=== PATIENT | male | born 1955 | race Caucasian/White ===

== ENCOUNTER → 2018-04-02 08:19 | Outpatient (CLI) | payer OTHER, SELFPAY ==
[2018-04-02 10:30] LABS: Anion Gap 10 (5-15); BUN 23 mg/dL (7-18); BUN/Creat Ratio 22.1 RATIO (10-20); Calcium,Total 8.8 mg/dL (8.5-10.1); Chloride 108 mmol/L (98-107); Cholesterol 175 mg/dL (200); Creatinine, Serum 1.04 mg/dL (0.70-1.30); EST Glomerular Filtration Rate 76 mL/min (>60); Est Glom Filt Rate - Afr Amer 92 mL/min (>60); Glucose 88 mg/dL (74-106); High Density Lipoprotein 42 mg/dL; Potassium 4.2 mmol/L (3.5-5.1); Sodium Level 143 mmol/L (136-145); Triglycerides 131 mg/dL; Very Low Density Lipoprotein 26 mg/dL (5-40)
== END ==
PROVIDERS: Family Provider Family Medicine; PCP Family Medicine; Visit Provider Family Medicine
DX: I10 Essential (primary) hypertension (principal)
CPT/HCPCS: 36415; 80048; 80061

== ENCOUNTER → 2018-04-14 14:02 | Outpatient (CLI) | payer OTHER, SELFPAY ==
--- NOTE | 2018-04-14 14:10 | RAD_ITS ---
STUDY: X-RAY CHEST REASON FOR EXAM: Male, 62 years old. Persistent cough. TECHNIQUE: PA and lateral views of the chest. COMPARISON: None. FINDINGS: Mild elevation of the left hemidiaphragm. Mild increased interstitial markings at the lung bases slightly worse on the left side. This may represent either scarring and/or linear atelectasis. Follow-up is recommended. There is no demonstrated pleural abnormality. Normal size heart. Normal mediastinum and ashlie. Normal visualized pulmonary arteries. Normal visualized aortic arch and descending thoracic aorta. There are diffuse degenerative changes of the visualized thoracic spine. Normal visualized ribs, clavicles, and shoulders. There is no demonstrated abnormality of the visualized soft tissue structures of the upper abdomen. RAD/Chest PA and Lateral IMPRESSION: Increasing markings at the lung bases slightly worse on the left side as described. This may represent either linear scarring or atelectasis. Follow-up is recommended. Electronically Signed: Leroy Page MD at 14:53 EST Tel [phone], Service support ,
== END ==
PROVIDERS: Family Provider Family Medicine; PCP Family Medicine; Referring Provider Family Medicine; Visit Provider Family Medicine
DX: R05 Cough (principal)
CPT/HCPCS: 71046

== ENCOUNTER → 2019-04-20 08:30 | Outpatient (CLI) | payer OTHER, SELFPAY ==
[2018-11-02 11:07] VITALS: BMI 26.8
[2019-04-20 10:40] LABS: Anion Gap 4 (5-15); BUN 17 mg/dL (7-18); BUN/Creat Ratio 15.5 RATIO (10-20); Calcium,Total 8.5 mg/dL (8.5-10.1); Chloride 105 mmol/L (98-107); Cholesterol 157 mg/dL (200); EST Glomerular Filtration Rate 71 mL/min (>60); Est Glom Filt Rate - Afr Amer 86 mL/min (>60); Glucose 85 mg/dL (74-106); High Density Lipoprotein 47 mg/dL; Potassium 4.4 mmol/L (3.5-5.1); Sodium Level 136 mmol/L (136-145); Triglycerides 95 mg/dL; Very Low Density Lipoprotein 19 mg/dL (5-40)
== END ==
PROVIDERS: Family Provider Family Medicine; PCP Family Medicine; Visit Provider Family Medicine
DX: I10 Essential (primary) hypertension (principal); E78.5 Hyperlipidemia, unspecified
CPT/HCPCS: 36415; 80048; 80061

== ENCOUNTER → 2020-10-27 08:26 | Outpatient (CLI) | payer OTHER, SELFPAY ==
[2018-11-02 11:07] VITALS: BMI 26.8
[2020-10-27 11:16] LABS: Anion Gap 9 (5-15); BUN 20 mg/dL (7-18); Calcium,Total 9.1 mg/dL (8.5-10.1); Chloride 102 mmol/L (98-107); Creatinine, Serum 1.05 mg/dL (0.70-1.30); EST Glomerular Filtration Rate 75 mL/min (>60); Est Glom Filt Rate - Afr Amer 91 mL/min (>60); Glucose 87 mg/dL (74-106); Potassium 4.3 mmol/L (3.5-5.1); Sodium Level 136 mmol/L (136-145)
== END ==
PROVIDERS: PCP Family Medicine; Referring Provider Family Medicine; Visit Provider Family Medicine
DX: I10 Essential (primary) hypertension (principal)
CPT/HCPCS: 36415; 80048

== ENCOUNTER → 2022-03-01 | Outpatient (CLI) | payer OTHER, SELFPAY ==
[2022-03-01 10:40] LABS: Anion Gap 6 (5-15); BUN 24 mg/dL (7-18); BUN/Creat Ratio 24.6 RATIO (10-20); Calcium,Total 9.7 mg/dL (8.5-10.1); Chloride 105 mmol/L (98-107); Creatinine, Serum 0.97 mg/dL (0.70-1.30); EST Glomerular Filtration Rate 81 mL/min (>60); Est Glom Filt Rate - Afr Amer 98 mL/min (>60); Glucose 94 mg/dL (74-106); PSA,Total - Annual Screen 1.19 ng/mL (0.00-4.00); Potassium 4.2 mmol/L (3.5-5.1); Sodium Level 136 mmol/L (136-145)
== END | disposition home or self-care (01) ==
LOC: MFPLAB 09:02
PROVIDERS: PCP Family Medicine; Referring Provider Family Medicine; Visit Provider Family Medicine
DX: E78.5 Hyperlipidemia, unspecified (principal); Z12.5 Encounter for screening for malignant neoplasm of prostate
CPT/HCPCS: 36415; 80048; 84153; G0103

== ENCOUNTER → 2022-08-22 | Outpatient (CLI) | payer OTHER, SELFPAY ==
--- NOTE | 2022-08-22 13:30 | TOBX_PTH ---
PATIENT: MITA CHOPRA LOC: [facility] U#:[id number] AGE/SX: 66/M ROOM: RE08/22/[address]: Dr. Jorje Black DDS : 1955 BED: DIS: 08/22/2022 SPEC #: [id number] RECD: 08/22/22 14:55 STATUS: JULIUS REDamián #: [id number] SUKHJINDER: 08/22/22 13:[address]: Jorje Black DEPT: SURGICAL PATHOLOGY RECD BY: Jana Bermudez ENTERED: 08/23/22 09:44 SP TYPE: TONGUE BX OTHR DR: Dr. 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 Mild lichenoid inflammation. See comment. AM:agata 08/24/2022 COMMENT The findings may be consistent with lichen planus. Clinical correlation is suggested. MICROSCOPIC DESCRIPTION Slides are reviewed. GROSS DESCRIPTION Received in fixative is one container labeled with the patient's name and designated tongue. The specimen consists of a piece of paz mucosal tissue measuring 0.6 x 0.3 cm and up to 0.3 cm in thickness. The specimen is inked, bisected and submitted entirely in one cassette. / SJ:agata 08/23/2022 TC:3 CPT: 64674
== END | disposition home or self-care (01) ==
LOC: LABSPEC 15:07
PROVIDERS: PCP Family Medicine; Referring Provider Dentist Oral and Maxillofacial Surgery; Visit Provider Dentist Oral and Maxillofacial Surgery
DX: R23.4 Changes in skin texture (principal)
CPT/HCPCS: 88305

== ENCOUNTER 2023-02-16 07:34 | Emergency (ER) | payer OTHER, SELFPAY ==
[2023-02-16 07:35] VITALS: BP 140/90; PULSE 77; RESP 16; TEMP 37; O2SAT 99; BMI 28.0
--- NOTE | 2023-02-16 07:47 | CT_ITS ---
EXAM: CT ABDOMEN AND PELVIS WITHOUT INTRAVENOUS CONTRAST CLINICAL INDICATION: constipation, vomiting TECHNIQUE: Helically acquired images were obtained of the abdomen and pelvis without intravenous contrast. This CT exam was performed using one or more of the following dose reduction techniques: automated exposure control, adjustment of the mA and/or kV according to patient size, and/or use of iterative reconstruction technique. COMPARISON: No relevant prior studies available. FINDINGS: LOWER THORAX: Interstitial thickening involves the lung bases which may represent acute or chronic interstitial lung disease. ABDOMEN: LIVER: 12 mm hypodensity within hepatic segment 8 suggestive of a cyst. PANCREAS: Normal. No focal cystic mass. SPLEEN: Normal. Normal size without focal cystic or solid mass. ADRENALS: Normal. No nodules. KIDNEYS AND URETERS: 4 mm proximal right ureteral stone noted at the L2-3 level associated with right hydronephrosis. No intrarenal stone. Left kidney and collecting system are normal. STOMACH AND BOWEL: Diverticulosis of the colon noted without evidence of acute diverticulitis. PELVIS: APPENDIX: Appendix is visualized and normal in appearance. BLADDER: Normal. REPRODUCTIVE: Prostate gland is mildly enlarged. ABDOMEN and PELVIS: INTRAPERITONEAL SPACE: Normal. No ascites or other fluid collection. No free air. BONES/JOINTS: No suspicious lytic or blastic abnormality. SOFT TISSUES: Small fat-containing left inguinal hernia. VASCULATURE: Normal. Abdominal aorta is non-dilated. LYMPH NODES: Normal. No enlarged lymph nodes. CT/Abdomen/Pelvis without Cont IMPRESSION: 1. Obstructive 4 mm proximal right ureteral stone. 2. Diverticulosis coli. 3. Small fat-containing left inguinal hernia. Electronically Signed: Catrachito Carmen MD at 8:40 EDT ,
--- NOTE | 2023-02-16 07:48 | EX.ED.DYSGE1 ---
HPI History of Present Illness Chief Complaint: Nausea/Vomiting Informant: patient Onset/Context/Timing Onset: Days (3 days) Narrative Narrative: Patient presents secondary to constipation with nausea and vomiting. He states he had a small bowel movement on Saturday, but none since. He took Senokot last night had a small amount of gas this morning. He has had nausea and vomiting and feels that that is the only way for his body to get rid of least at this time. He denies any prior abdominal surgeries. Last colonoscopy was 4 years ago. He has had some polyps removed during his last 2 scopes. He has a family history of colon cancer. He is scheduled for another colonoscopy next week with Dr. Platt. [facility] Medical History Hemorrhoids Hypercholesteremia Hypertension Home Medications aspirin 81 mg tablet,delayed release 81 mg PO DAILY 11/02/18 [History Last Taken Unknown] hydrocodone-acetaminophen 5-325mg 5mg-325mg 1 tab PO Q6H PRN PRN Pain 3 days #10 TABLETS 02/16/23 [Rx Last Taken Unknown] ibuprofen 400 mg tablet 400 mg PO Q8H PRN pain #14 tabs 02/16/23 [Rx Last Taken Unknown] lansoprazole 15 mg capsule,delayed release 15 mg PO DAILY 02/16/23 [History Last Taken Unknown] lisinopril 5 mg tablet 5 mg PO DAILY 02/16/23 [History Last Taken Unknown] ondansetron 4 mg disintegrating tablet 4 mg PO Q8H PRN PRN Nausea #10 tabs 02/16/23 [Rx Last Taken Unknown] simvastatin 20 mg tablet 20 mg PO DAILY 02/16/23 [History Last Taken Unknown] Allergy/AdvReac Type Severity Reaction Status Date / Time No Known Allergies Allergy Verified 02/16/23 07:35 Social History Smoking Status: Never smoker alcohol intake: never ROS ROS ED Constitutional Constitutional ED: Denies chills or fever(s) Eyes Eyes: Denies discharge from eye(s) ENT ENT ED: Denies discharge from eye(s), rhinorrhea or sore throat Cardiovascular Cardiovascular: Denies chest pain Respiratory/Chest Respiratory/Chest: Denies cough or dyspnea Gastrointestinal Gastrointestinal: Reports abdominal pain, constipation, nausea and vomiting; Denies diarrhea Genitourinary Genitourinary ED: Denies dysuria Musculoskeletal Musculoskeletal: Denies back pain or extremity pain Integumentary Denies Abrasions or rash Neurologic Neurologic: Denies headache(s) or weakness Psychiatric Psychiatric: Denies anxiety or depression Allergic/Immunologic Allergic/Immunologic ED: Denies lip swelling or urticaria EXAM Physical Exam Const Vital Signs: 02/16/23 07:35 Temperature 98.6 F Temperature Source Oral Pulse Rate 77 Respiratory Rate 16 Blood Pressure 140/90 H Blood Pressure Mean 106 Pulse Ox 99 Oxygen Delivery Method Room Air Positive well nourished and well developed General Appearance ED: well developed HEENT Reports moist mucous membranes Eyes EOMs intact bilaterally Chest Wall inspection of chest normal and palpation of chest normal Resp normal respiratory effort and clear to auscultation bilaterally Cardio regular rate and regular rhythm GI GI Narrative: Abdomen is soft and nontender palpation. No bowel sounds are heard on auscultation. Extremity normal to inspection Neuro oriented x3 and no sensory deficits noted Motor Exam: strength 5/5 throughout Psych mental status grossly normal Skin no rashes or lesions noted MDM MDM MDM Narrative Medical decision making narrative: IV line established. Labwork obtained to evaluate for leukocytosis, anemia, and electrolyte derangement. CT scan of the abdomen and pelvis obtained to evaluate for possible bowel obstruction. History & Record Review Discussion w/independent historian: Patient and Significant other Additional record(s) reviewed:: Prior labs Lab Data Attestation: I reviewed the patient's lab results. Labs: Laboratory Results - last 24 hr 02/16/23 02/16/23 07:45 08:41 WBC 14.5 H RBC 5.60 Hgb 17.6 H Hct 53.9 MCV 96.3 H MCH 31.4 MCHC 32.7 RDW Std Deviation 46.8 H RDW Coeff of [place] 13.0 Plt Count 242 MPV 9.9 Immature Gran % (Auto) 0.500 Neut % (Auto) 82.6 H Lymph % (Auto) 10.3 L [place] % (Auto) 6.3 Eos % (Auto) 0.1 Baso % (Auto) 0.2 Absolute Neuts (auto) 12.0 H Absolute Lymphs (auto) 1.50 Nucleated RBC % 0 Sodium 138 Potassium 4.4 Chloride 102 Carbon Dioxide 25.0 Anion Gap 11 BUN 28 H Creatinine 1.31 H Estim Creat Clear Calc 54.95 Est GFR (MDRD) Af Amer 70 Est GFR (MDRD) Non-Af 58 L BUN/Creatinine Ratio 21.4 H Glucose 98 Calcium 9.5 Total Bilirubin 1.00 Direct Bilirubin 0.18 AST 51 H ALT 35 Alkaline Phosphatase 75 Total Protein 7.9 Albumin 3.9 Globulin 4.0 Urine Color Yellow Urine Clarity Clear Urine pH 5.0 Ur Specific [place] 1.025 Urine Protein 15 H Urine Glucose (UA) Normal Urine Ketones 50 H Urine Occult Blood 50 H Urine Nitrite Negative Urine Bilirubin Negative Urine Urobilinogen Normal Ur Leukocyte Esterase 25 H Urine RBC 5-10 SEEN Urine WBC 0-5 SEEN Ur Squamous Epith Cells 0 SEEN Urine Bacteria 0 SEEN Urine Mucus 2+ Radiography Diagnostic Testing: Clinical Impression(s) from Imaging Studies Abdomen/Pelvis CT 02/16/23 07:47 IMPRESSION: 1. Obstructive 4 mm proximal right ureteral stone. 2. Diverticulosis coli. 3. Small fat-containing left inguinal hernia. Electronically Signed: Catrachito Carmen MD at 8:40 EDT , Treatment and Re-Evaluation :: White count elevated at 14.5 with 82% neutrophils. Hemoglobin concentrated at 17.6. Chemistry studies reveal a BUN of 28 and a creatinine 1.31. This is increased from a creatinine of 0.97 a year ago. Urinalysis reveals no bacteria. He has 5-[address] scan of the flank reveals a 4 mm proximal right ureteral stone. Diverticulosis is noted without evidence of diverticulitis. Test results discussed with patient and at bedside. At this time patient does not have evidence of constipation. He did agree to a small dose of Toradol and Zofran. He will be discharged with prescriptions for Zofran, [place], and ibuprofen. He is instructed to increase p.o. fluids. Return instructions were provided. He will be referred to Dr. Ortiz for follow-up. Discharge Plan Triage Chief Complaint: Nausea/Vomiting ED Provider: Erica Crowell Dx/Rx/DC Orders Clinical Impression: Ureterolithiasis Instructions: ED Kidney Stone w/ Colic Prescriptions: New ondansetron 4 mg tablet,disintegrating 4 mg PO Q8H PRN PRN (Reason: Nausea) Qty: 10 0RF ibuprofen 400 mg tablet 400 mg PO Q8H PRN (Reason: pain) Qty: 14 0RF hydrocodone-acetaminophen 5-325 mg tablet 1 tab PO Q6H PRN PRN (Reason: Pain) 3 Days Qty: 10 0RF No Action aspirin 81 mg tablet,delayed release (DR/EC) 81 mg PO DAILY lansoprazole 15 mg capsule,delayed release(DR/EC) 15 mg PO DAILY lisinopril 5 mg tablet 5 mg PO DAILY Patient Comments: TAKE 1 TABLET BY MOUTHCONCE DAILY simvastatin 20 mg tablet 20 mg PO DAILY Patient Comments: TAKE 1 TABLET BY MOUTH)ONCE DAILY Primary Care Provider: Bola Olivo Referrals: Elijah Ortiz MD [Med Staff - Active Staff] - 3-5 Days if not improving Bola Olivo MD [Primary Care Provider] - Disposition Disposition: Home, Self Care
[2023-02-16] MEDS: 0.9% Normal Saline (1000mL) 1,000 ML 150 ML IV (07:56)
[2023-02-16 08:00] LABS: Basophil# 0.03 X10^3/uL; Basophil% 0.2 % (0-1); Eosinophil# 0.01 X10^3/uL; Eosinophils% 0.1 % (0-5); Hematocrit 53.9 % (40-54); Hemoglobin 17.6 g/dL (13.0-16.5); Lymphocyte % 10.3 % (19-41); Mean Corp Hgb Conc 32.7 g/dL (32-36); Mean Corpuscular Hgb 31.4 pg (27.0-32.0); Mean Corpuscular Volume 96.3 fL (80-94); Mean Platelet Vol. 9.9 fl (6.2-12.0); Monocyte# 0.91 X10^3/uL; Monocyte% 6.3 % (0-10); NRBC Flagged by Analyzer 0 % (0-5); Neutrophil # 12.02 X10^3/uL (2.7-7.7); Neutrophil % 82.6 % (47-70); Platelet Count 242 K/mm3 (150-450); RBC Distribution Width SD 46.8 fl (35.1-43.9); White Blood Count 14.5 K/mm3 (4.4-11.0)
[2023-02-16 08:28] LABS: AST(SGOT) 51 U/L (15-37); Alanine Aminotransfer ALT/SGPT 35 U/L (16-61); Albumin, Serum 3.9 g/dL (3.2-5.0); Alkaline Phosphatase 75 U/L (45-117); Anion Gap 11 (5-15); BUN 28 mg/dL (7-18); BUN/Creat Ratio 21.4 RATIO (10-20); Bilirubin, Direct 0.18 mg/dL (0.00-0.30); Calcium,Total 9.5 mg/dL (8.5-10.1); Chloride 102 mmol/L (98-107); Creatinine, Serum 1.31 mg/dL (0.70-1.30); EST Glomerular Filtration Rate 58 mL/min (>60); Est Glom Filt Rate - Afr Amer 70 mL/min (>60); Estimated Creatinine Clearance 54.95 ml/min; Glucose 98 mg/dL (74-106); Potassium 4.4 mmol/L (3.5-5.1); Protein, Total 7.9 g/dL (6.4-8.2); Sodium Level 138 mmol/L (136-145)
[2023-02-16 09:12] LABS: Bacteria 0 SEEN /hpf (None Seen); Squamous Epithelial Cells - UA 0 SEEN /hpf (0-5)
[2023-02-16 09:25] LABS: Color, Urine Yellow (Yellow); Glucose, Dipstick Normal (Normal); Ketone-Dipstick 50 mg/dl (Negative); Leukocyte Esterase-Dipstick 25 /ul (Negative); Nitrite-Dipstick Negative (Negative); Occult Blood-Urine 50 /ul (Negative); Protein-Dipstick 15 mg/dl (Negative); Specific Gravity, Urine 1.025 (1.002-1.030); Urine Bilirubin Dipstick Negative (Negative); Urine Clarity Clear (Clear); Urine Urobilinogen Normal (Normal)
[2023-02-16] MEDS: Ondansetron 4 MG/2 ML Vial IV (09:29)
[2023-02-16] MEDS: Ketorolac 15 MG/ML Vial IV (09:29)
[2023-02-16 09:46] LABS: White Blood Cells 0-5 SEEN /hpf (0-5)
[2023-02-16 09:47] LABS: Mucous, Urine 2+ /hpf (<or=2+); Red Blood Cells-Urine 5-10 SEEN /hpf (0-5)
[2023-02-16 10:47] VITALS: BP 128/78; PULSE 64; RESP 16; TEMP 36.4; O2SAT 99
== END 2023-02-16 10:49 | disposition home or self-care (01) ==
PROVIDERS: Emergency Provider Emergency Medicine; PCP Family Medicine; Visit Provider Emergency Medicine
DX: N20.1 Calculus of ureter (principal); I10 Essential (primary) hypertension; E78.00 Pure hypercholesterolemia, unspecified; Z80.0 Family history of malignant neoplasm of digestive organs; Z86.010 Personal history of colon polyps; Z79.899 Other long term (current) drug therapy
CPT/HCPCS: 74176; 80048; 80076; 81001; 85025; 96361; 96374; 96375; 99284; J7030; A4216; J2405

== ENCOUNTER → 2023-02-28 | Outpatient (CLI) | payer OTHER, SELFPAY ==
[2023-02-28 10:13] LABS: AST(SGOT) 19 U/L (15-37); Alanine Aminotransfer ALT/SGPT 30 U/L (16-61); Albumin, Serum 3.5 g/dL (3.2-5.0); Alkaline Phosphatase 67 U/L (45-117); Anion Gap 3 (5-15); BUN 21 mg/dL (7-18); BUN/Creat Ratio 21.3 RATIO (10-20); Calcium,Total 9.2 mg/dL (8.5-10.1); Chloride 104 mmol/L (98-107); Cholesterol 170 mg/dL (200); Creatinine, Serum 0.99 mg/dL (0.70-1.30); EST Glomerular Filtration Rate 80 mL/min (>60); Est Glom Filt Rate - Afr Amer 97 mL/min (>60); Globulin 3.6 g/dL (2.2-4.2); Glucose 92 mg/dL (74-106); High Density Lipoprotein 44 mg/dL; PSA,Total - Annual Screen 1.24 ng/mL (0.00-4.00); Potassium 4.4 mmol/L (3.5-5.1); Protein, Total 7.1 g/dL (6.4-8.2); Sodium Level 135 mmol/L (136-145); Triglycerides 134 mg/dL; Very Low Density Lipoprotein 27 mg/dL (5-40)
== END | disposition home or self-care (01) ==
LOC: MFPLAB 08:18
PROVIDERS: PCP Family Medicine; Visit Provider Family Medicine
DX: E78.5 Hyperlipidemia, unspecified (principal); Z12.5 Encounter for screening for malignant neoplasm of prostate
CPT/HCPCS: 36415; 80053; 80061; 84153; G0103

== ENCOUNTER → 2023-04-04 | Outpatient (CLI) | payer OTHER, SELFPAY ==
[2023-04-04 10:27] LABS: Absolute Lymphocyte Count 1.82 X10^3/uL (0.83-4.51); Absolute Neutrophil Count 3.6 X10^3/uL (2.0-7.7); Basophil# 0.02 X10^3/uL; Basophil% 0.3 % (0-1); Eosinophil# 0.07 X10^3/uL; Eosinophils% 1.1 % (0-5); Hematocrit 49.2 % (40-54); Hemoglobin 16.2 g/dL (13.0-16.5); Lymphocyte # 1.82 X10^3/ul (0.83-4.51); Lymphocyte % 29.7 % (19-41); Mean Corp Hgb Conc 32.9 g/dL (32-36); Mean Corpuscular Hgb 32.6 pg (27.0-32.0); Mean Platelet Vol. 10.3 fl (6.2-12.0); Monocyte% 9.8 % (0-10); NRBC Flagged by Analyzer 0 % (0-5); Neutrophil # 3.57 X10^3/uL (2.7-7.7); Neutrophil % 58.4 % (47-70); Platelet Count 245 K/mm3 (150-450); RBC Distribution Width CV 13.2 % (11.6-14.6); RBC Distribution Width SD 47.6 fl (35.1-43.9); Red Blood Count 4.97 M/mm3 (4.6-6.2); White Blood Count 6.1 K/mm3 (4.4-11.0)
== END | disposition home or self-care (01) ==
LOC: MFPLAB 08:06
PROVIDERS: PCP Family Medicine; Visit Provider Family Medicine
DX: D58.2 Other hemoglobinopathies (principal)
CPT/HCPCS: 36415; 85025

== ENCOUNTER → 2023-08-29 | Outpatient (CLI) | payer BC, MEDICARE, SELFPAY ==
[2023-08-29 10:04] LABS: Absolute Lymphocyte Count 1.62 X10^3/uL (0.83-4.51); Basophil# 0.03 X10^3/uL; Basophil% 0.5 % (0-1); Eosinophil# 0.08 X10^3/uL; Eosinophils% 1.3 % (0-5); Hematocrit 48.5 % (40-54); Hemoglobin 16.2 g/dL (13.0-16.5); Lymphocyte # 1.62 X10^3/ul (0.83-4.51); Lymphocyte % 25.9 % (19-41); Mean Corp Hgb Conc 33.4 g/dL (32-36); Mean Corpuscular Hgb 32.3 pg (27.0-32.0); Mean Corpuscular Volume 96.6 fL (80-94); Mean Platelet Vol. 10.2 fl (6.2-12.0); Monocyte# 0.53 X10^3/uL; Monocyte% 8.5 % (0-10); NRBC Flagged by Analyzer 0 % (0-5); Neutrophil # 3.98 X10^3/uL (2.7-7.7); Neutrophil % 63.5 % (47-70); Platelet Count 231 K/mm3 (150-450); RBC Distribution Width CV 12.7 % (11.6-14.6); RBC Distribution Width SD 45.2 fl (35.1-43.9); Red Blood Count 5.02 M/mm3 (4.6-6.2); White Blood Count 6.3 K/mm3 (4.4-11.0)
[2023-08-29 10:37] LABS: Anion Gap 5 (5-15); BUN 22 mg/dL (7-18); BUN/Creat Ratio 22.5 RATIO (10-20); Calcium,Total 9.8 mg/dL (8.5-10.1); Chloride 104 mmol/L (98-107); Creatinine, Serum 0.98 mg/dL (0.70-1.30); EST Glomerular Filtration Rate 81 mL/min (>60); Est Glom Filt Rate - Afr Amer 98 mL/min (>60); Glucose 98 mg/dL (74-106); Potassium 4.4 mmol/L (3.5-5.1); Sodium Level 135 mmol/L (136-145)
== END | disposition home or self-care (01) ==
LOC: MFPLAB 08:32
PROVIDERS: PCP Family Medicine; Visit Provider Family Medicine
DX: I10 Essential (primary) hypertension (principal); D58.2 Other hemoglobinopathies
CPT/HCPCS: 36415; 80048; 85025

== ENCOUNTER → 2024-03-04 | Outpatient (CLI) | payer MEDICARE, BC, SELFPAY ==
[2024-03-04 18:00] LABS: ALB/GLOB Ratio 1.1 RATIO (0.9-2.4); AST(SGOT) 23 U/L (15-37); Alanine Aminotransfer ALT/SGPT 21 U/L (16-61); Albumin, Serum 3.7 g/dL (3.2-5.0); Alkaline Phosphatase 71 U/L (45-117); Anion Gap 5 (5-15); BUN 18 mg/dL (7-18); BUN/Creat Ratio 17.8 RATIO (10-20); Chloride 107 mmol/L (98-107); Cholesterol 167 mg/dL (200); Creatinine, Serum 1.01 mg/dL (0.70-1.30); EST Glomerular Filtration Rate 78 mL/min (>60); Est Glom Filt Rate - Afr Amer 94 mL/min (>60); Globulin 3.4 g/dL (2.2-4.2); Glucose 74 mg/dL (74-106); High Density Lipoprotein 49 mg/dL; Potassium 3.9 mmol/L (3.5-5.1); Protein, Total 7.1 g/dL (6.4-8.2); Sodium Level 138 mmol/L (136-145); Triglycerides 96 mg/dL; Very Low Density Lipoprotein 19 mg/dL (5-40)
== END | disposition home or self-care (01) ==
LOC: MFPLAB 14:00
PROVIDERS: PCP Family Medicine; Visit Provider Family Medicine
DX: E78.5 Hyperlipidemia, unspecified (principal)
CPT/HCPCS: 36415; 80053; 80061

== ENCOUNTER → 2024-09-04 | Outpatient (CLI) | payer MEDICARE, BC, SELFPAY ==
[2024-09-04 10:33] LABS: Absolute Lymphocyte Count 1.79 X10^3/uL (0.83-4.51); Absolute Neutrophil Count 4.6 X10^3/uL (2.0-7.7); Basophil# 0.03 X10^3/uL; Basophil% 0.4 % (0-1); Eosinophils% 1.4 % (0-5); Hematocrit 46.1 % (40-54); Hemoglobin 14.6 g/dL (13.0-16.5); Lymphocyte # 1.79 X10^3/ul (0.83-4.51); Lymphocyte % 24.7 % (19-41); Mean Corp Hgb Conc 31.7 g/dL (32-36); Mean Corpuscular Hgb 27.9 pg (27.0-32.0); Mean Platelet Vol. 10.2 fl (6.2-12.0); Monocyte# 0.65 X10^3/uL; NRBC Flagged by Analyzer 0 % (0-5); Neutrophil # 4.63 X10^3/uL (2.7-7.7); Neutrophil % 63.9 % (47-70); Platelet Count 274 K/mm3 (150-450); RBC Distribution Width CV 15.5 % (11.6-14.6); RBC Distribution Width SD 50.4 fl (35.1-43.9); Red Blood Count 5.24 M/mm3 (4.6-6.2); White Blood Count 7.2 K/mm3 (4.4-11.0)
[2024-09-04 10:58] LABS: ALB/GLOB Ratio 1.5 RATIO (0.9-2.4); AST(SGOT) 26 U/L (<=37); Alanine Aminotransfer ALT/SGPT 20 U/L (<=46); Albumin, Serum 3.9 g/dL (3.4-4.8); Alkaline Phosphatase 78 U/L (40-129); Anion Gap 10 (5-15); BUN 19 mg/dL (4-19); BUN/Creat Ratio 18.5 RATIO (10-20); Calcium,Total 9.2 mg/dL (7.6-11.0); Carbon Dioxide 23.5 mmol/L (21.0-32.0); Chloride 102 mmol/L (98-108); Cholesterol 158 mg/dL (<=200); Creatinine, Serum 1.03 mg/dL (0.70-1.20); EST Glomerular Filtration Rate 78 (>60); Globulin 2.6 g/dL (2.2-4.2); Glucose 92 mg/dL (70-99); High Density Lipoprotein 44 mg/dL; Low Density Lipoprotein Calc. 98 mg/dL; Potassium 4.9 mmol/L (3.3-5.1); Protein, Total 6.4 g/dL (5.9-8.4); Sodium Level 135 mmol/L (133-145); Total Bilirubin 0.33 mg/dL (0.00-1.30); Triglycerides 80 mg/dL; Very Low Density Lipoprotein 16 mg/dL (5-40)
== END | disposition home or self-care (01) ==
LOC: MFPLAB 08:35
PROVIDERS: PCP Family Medicine; Referring Provider Family Medicine; Visit Provider Family Medicine
DX: D58.2 Other hemoglobinopathies (principal); I10 Essential (primary) hypertension; E78.5 Hyperlipidemia, unspecified
CPT/HCPCS: 36415; 80053; 80061; 85025